=== PATIENT | male | born 1970 | race Caucasian/White ===

== ENCOUNTER 2019-07-24 11:07 | Emergency (ER) | payer MEDICAID ==
[~2019-07-24] VITALS: Ht 172.7 cm; Wt 75.0 kg
[2019-07-24] MEDS ORDERED: MORPHINE SULFATE 4 MG/ML CPJ (NOT FOR IM USE) IV STA ×2 (11:26→13:50)
[2019-07-24] MEDS ORDERED: SODIUM CHLORIDE 0.9% 1,000 ML IV ONE (11:26)
[2019-07-24] MEDS ORDERED: ONDANSETRON HCL 4MG/2ML INJ IV STA ×2 (11:26→13:50)
[2019-07-24 11:48] LABS: BASOPHILS % 0.5 % (0.0-2.0); EOSINOPHILS % 2.7 % (0.0-5.0); HEMOGLOBIN. 13.8 g/dL (14.0-18.0); LYMPHOCYTES % 30.6 % (20.0-50.0); MEAN CORPUSCULAR VOLUME 92.7 fL (80.0-94.0); MEAN PLATELET VOLUME 7.9 fl (7.4-10.4); NEUTROPHILS % 57.2 % (40.0-76.0); PLATELET 191 x1000/uL (130-400); RED BLOOD CELL COUNT 4.31 mill/uL (4.7-6.1); RED CELL DISTRIBUTION WIDTH 15.8 % (11.6-14.6)
[2019-07-24 11:55] LABS: CHLORIDE 107 mEq/L (98-107)
[2019-07-24] MEDS ORDERED: FLUORESCEIN SODIUM 1MG/STRIP BOTHEYE ONE (13:15)
[2019-07-24] MEDS ORDERED: CLINDAMYCIN 600 MG in DEXTROSE 5% WATER 50 ML IV ONE (13:15)
[2019-07-24] MEDS ORDERED: TETRACAINE 0.5% OPHTH DROPS 4ML BOTHEYE ONE (13:15)
[2019-07-24] MEDS ORDERED: CLINDAMYCIN 600MG PREMIX 50 ML IV SCH (15:00)
[2019-07-24 16:55] VITALS: BP 128/71
== END 2019-07-24 17:20 | disposition short-term general hospital (02) ==
LOC: ER 11:07
DX: S02.5XXA Fracture of tooth (traumatic), initial encounter for closed fracture (principal); H54.3 Unqualified visual loss, both eyes; R55 Syncope and collapse; M54.5 Low back pain; M25.561 Pain in right knee; H53.8 Other visual disturbances; E11.9 Type 2 diabetes mellitus without complications; Z88.0 Allergy status to penicillin; Z88.6 Allergy status to analgesic agent; Z98.890 Other specified postprocedural states; W18.39XA Other fall on same level, initial encounter; Y93.89 Activity, other specified; Y92.89 Other specified places as the place of occurrence of the external cause; Y99.8 Other external cause status
CPT/HCPCS: 36415; 70450; 70486; 71045; 72100; 73560; 80053; 84484; 85025; 93005; 96361; 96365; 96366; 96375; 96376; 99285; J2270; J2405; J3490; J7030; J7060